=== PATIENT | female | born 1975 | race Hispanic/Latino ===

== ENCOUNTER 2018-07-11 06:25 | Inpatient (IN) | payer OTHER ==
[2018-07-11] MEDS ORDERED: Phenaphthazine-PH Test Paper VI ONE (06:59)
[2018-07-11 07:19] VITALS: BMI 27.6
[2018-07-11] MEDS ORDERED: AMPicillin 2 GM in Sodium Chloride 0.9% 100 ML IVPB ONE (07:19)
[2018-07-11] MEDS: Lactated Ringer's 1,000 ML IV ONE ×2 (07:20→08:15)
[2018-07-11] MEDS ORDERED: AMPicillin 1 GM in Sodium Chloride 0.9% 100 ML IVPB SCH (07:30)
[2018-07-11] MEDS ORDERED: Lactated Ringer's 1,000 ML IV SCH (07:30)
[2018-07-11 07:57] LABS: BASO % 0.2 % (0.0-2.0); EOS # 0.1 K/uL (0.0-0.7); EOS % 0.5 % (0.0-4.0); HEMOGLOBIN 11.7 g/dL (12.0-16.0); LYMPH # 1.9 K/uL (1.0-4.3); LYMPH % 19.6 % (20.0-40.0); MEAN CELL VOLUME 86.6 fl (81.0-99.0); MEAN CORPUSCULAR HEMOGLOBIN 29.1 pg (27.0-31.0); MEAN CORPUSCULAR HGB CONC 33.6 g/dL (33.0-37.0); MEAN PLATELET VOLUME 7.4 fl (7.2-11.7); MONO # 0.7 K/uL (0.0-0.8); NEUT # 7.1 K/uL (1.8-7.0); NEUT % 72.7 % (50.0-75.0); NRBC % 0.1 % (0.0-0.0); RBC 4.03 Mil/uL (3.80-5.20); RED CELL DISTRIBUTION WIDTH 13.8 % (11.5-14.5); WHITE BLOOD COUNT 9.8 K/uL (4.8-10.8)
--- NOTE | 2018-07-11 09:50 | OBADHP ---
Datetime: 07/11/2018 09:42 Admit Comment, IP Provider: Start ampicillin for GBS coverage and monitor labor Discussed with pt an d agreed Extremities - PN: Normal Abdomen - PN: Abnormal Back - PN: Normal Breast - PN: Not Done Lungs - PN: Normal Heart - PN: Normal Thyroid - PN: Normal Neurologic - PN: Not Done HEENT - PN: Normal General - PN: Normal Presentation-Admit: C FHR - Baseline A Provider: 140-150 Amniotic Fluid Color, Provider: Clear Membranes, Provider: Ruptured Contraction Comments Provider: 6-7 mins Comments, ACOG Physical Exam: Abd NT but gravid and fundus at term, ext no calf tenderness Gestation - Est Wks by US: 38+ Pool Provider: Positive IP Hx Assessment: The History has been Reviewed and is Current IP Chief Complaint: Uterine contractions; Suspected ruptured membranes NICHD Variability Prov Fetus A: Moderate 6-25bpm NICHD Accel Fetus A IP Provider: 10X10 NICHD Decel Fetus A IP Provider: None Dilatation, Provider: 4 Effacement, Provider: 50 Station, Provider: -2 Genitourinary Exam: Normal DTRs - PN: Normal EGA AdmitDate IP: 38.6 IP Adm Impression: Term, intrauterine ; Active labor; Ruptured Membranes IP Admit Plan: Admit to unit; Initiate labor protocol
[2018-07-11] MEDS ORDERED: Bupivacaine HCl 0.5% PF (30 ml) Inj ONE (09:55)
[2018-07-11] MEDS ORDERED: Fentanyl/Bupivacaine HCl 250 ML EPI ONE (10:29)
[2018-07-11] MEDS ORDERED: Oxytocin 30 UNIT 30 UNITS/500 ML BAG IV ONE (11:18)
[2018-07-11] MEDS ORDERED: OXYTOCIN/0.9 % NS 20 UNIT/1,000 ML BAG IV SCH (11:45)
--- NOTE | 2018-07-11 11:51 | OBDS ---
MATERNAL INFORMATION Estimated Blood Loss (ml): 200 Maternal Complications: None Provider Comments: Delivered a living baby girl appears term cried spontaneously, 9/9. AF john ar Placenta complete and intact Small vaginal/introital tear repaired as above Uterus contracted wel l Rectal done no defects Tolerated procedure well, no complications LABOR SUMMARY EDC: 07/19/2018 00:00 No. Babies in Womb: 1 LABOR INFORMATION Reason for Induction: Not Applicable Onset of Labor: 07/11/2018 05:30 (Annotations: As per pt: rupture at 1am and pain to start at 5:30 a m) Group B Beta Strep: Positive Steroids Given: None Reason Steroids Not Administered: Not Applicable Other Reason Not Administered: n/a MEMBRANES Membranes Rupture Method: Spontaneous Rupture of Membranes: 07/11/2018 01:00 (Annotations: As per pt. at home) Amniotic Fluid Color: Clear Amniotic Fluid Amount: Moderate (Annotations: as per pt) Amniotic Fluid Odor: Normal VAGINAL DELIVERY Episiotomy: None Laceration Extension: First Degree Laceration Type: Vaginal Laceration Repair: Yes Laceration Repair Note: small introital tear 1st dg repaired with simple 2-0 chromic x3. No complica tions Sponge Count Correct: Yes Sharps Count Correct: Yes Count Comment: count correct and verified by RN CSECTION DELIVERY Primary Indication: N/A Secondary Indication: N/A CSection Incision: N/A Uterine Closure: N/A
[2018-07-11] MEDS ORDERED: Benzocaine/Menthol SPRAY TOP PRN ×2 (11:54→13:55)
[2018-07-11] MEDS ORDERED: Oxycodone/Acetaminophen 5/325 mg Tab PO PRN ×2 (11:54→13:55)
[2018-07-12 07:18] LABS: BASO % 0.1 % (0.0-2.0); EOS % 0.5 % (0.0-4.0); HEMOGLOBIN 10.7 g/dL (12.0-16.0); LYMPH % 19.7 % (20.0-40.0); MEAN CELL VOLUME 86.9 fl (81.0-99.0); MEAN CORPUSCULAR HEMOGLOBIN 29.2 pg (27.0-31.0); MEAN CORPUSCULAR HGB CONC 33.6 g/dL (33.0-37.0); MEAN PLATELET VOLUME 7.4 fl (7.2-11.7); MONO # 0.8 K/uL (0.0-0.8); MONO % 8.3 % (0.0-10.0); NEUT # 7.2 K/uL (1.8-7.0); NEUT % 71.4 % (50.0-75.0); RBC 3.65 Mil/uL (3.80-5.20); RED CELL DISTRIBUTION WIDTH 13.8 % (11.5-14.5)
--- NOTE | 2018-07-12 07:51 | OBPPN ---
Datetime: 07/12/2018 07:45 PP Pain Prov: Within normal limits PP Pain Prov comment: No SOB, chest or leg pains PP Nausea Prov: Denies PP Flatus Prov: Yes PP Nausea Prov comment: Denies C/F PP Flatus Prov comment: voiding well PP Breasts Prov: Normal PP Lungs Prov: Normal PP Abdomen/Uterus Prov: Abnormal PP Lochia Prov: Normal PP Vulva/Perineum Prov: Not Done PP CVA Tenderness Prov: Normal PP Extremities Prov: Normal PP C/S Incision Prov: Not Applicable PP Progress Prov: Normal PP Comments Phys Exam Prov: breast not engorged, NT; Abd soft ND, fundus firm below the umb. NT; Ex t no calf tenderness PP Impression Prov: Normal progression PP Plan Prov: Continue present management PP Progress Note Prov: Continue PP care OOB and ambulation IP PP Procedures: None
--- NOTE | 2018-07-13 08:12 | OBPPN ---
Datetime: 07/13/2018 08:09 PP Pain Prov: Within normal limits PP Pain Prov comment: No SOB, chest or leg pain PP Nausea Prov: Denies PP Flatus Prov: Yes PP Breasts Prov: Normal PP Lungs Prov: Normal PP Abdomen/Uterus Prov: Abnormal PP Lochia Prov: Normal PP CVA Tenderness Prov: Normal PP Extremities Prov: Normal PP C/S Incision Prov: Not Applicable PP Progress Prov: Normal PP Comments Phys Exam Prov: breast nt, not engorged; Abd soft ND, fundus firm below the umb. NT Ext no edema or calf tenderness PP Impression Prov: Normal progression PP Plan Prov: Discharge PP Progress Note Prov: D/C home with instrucions and follow up office IP PP Procedures: None Vital Signs Provider PP: Reviewed
--- NOTE | 2018-07-13 08:15 | OBDCSUM ---
Datetime: 07/13/2018 08:12 Discharged to, Provider: Home Follow up at, Provider: Dr Garcia Disch Instr Activity: Bedrest; May be up to bathroom; May be up for meals; May Shower Disch Instr Diet: Regular Discharge Instructions, Provider: Routine instructions given Discharge Diagnosis, Provider: Term Delivered Discharge Time: 07/13/2018 08:12 Follow up in weeks, Provider: 4-6 wks Contraception discussed, Prov: Yes Disch Activity Restrictions: No exercising; No lifting; No driving; Minimize walking; Minimize stair -climbing; No sexual activity; Nothing in vagina - [place], tampons, douche Discharge Comment, Provider: Instrucitons given Contraception after Delivery: Undecided
[2018-07-13 18:51] VITALS: BP 121/76; PULSE 85; RESP 20; TEMP 98.2; O2SAT 96
== END 2018-07-13 14:30 | disposition home or self-care (01) | DRG 807 ==
LOC: H.EROB2 06:25 → H.L&D 07:00 → H.EROB2 07:18 → H.L&D 07:19 → H.OB/GYN 14:55
PROVIDERS: ADMIT Specialist; ATTEND Specialist
PROC: 10E0XZZ Delivery of Products of Conception, External Approach (ICD-10-PCS; principal; 2018-07-11)
PROC: 0HQ9XZZ Repair Perineum Skin, External Approach (ICD-10-PCS; 2018-07-11)
PROC: 4A1HXCZ Monitoring of Products of Conception, Cardiac Rate, External Approach (ICD-10-PCS; 2018-07-11)
DX: O70.0 First degree perineal laceration during delivery (principal); Z37.0 Single live birth; O99.824 Streptococcus B carrier state complicating childbirth; O09.523 Supervision of elderly multigravida, third trimester; Z3A.38 38 weeks gestation of pregnancy